=== PATIENT | male | born 1935 | race Caucasian/White ===

== ENCOUNTER 2019-05-31 08:01 | Emergency (ER) | payer SELFPAY ==
[~2019-05-31] VITALS: Ht 167.6 cm; Wt 69.9 kg
--- NOTE | 2019-05-31 08:17 | NUR ---
SEEN AND EXAMINED BY DR. SERNA.
[2019-05-31] MEDS ORDERED: IPRATROPIUM NEB FS 0.5 MG/2.5 ML AMPUL.NEB NEB ONE (08:30)
[2019-05-31] MEDS ORDERED: IV NS 0.9% 500 ML BAG IV ONE (08:30)
[2019-05-31] MEDS ORDERED: ALBUTEROL FS 2.5 MG/3 ML VIAL.NEB NEB ONE (08:30)
--- NOTE | 2019-05-31 08:30 | NUR ---
IV LINE ESTABLISHED, BLOOD DRAWNED AND SENT TO LAB.
[2019-05-31 08:40] LABS: BASOPHILS % (AUTO) 0.8 % (0.0-2.0); EOSINOPHILS % (AUTO) 2.1 % (0.0-6.0); HEMATOCRIT 38 % (39-51); HEMOGLOBIN 12.8 g/dL (13.5-17.5); LYMPHOCYTES # (AUTO) 0.7 /CMM (0.8-4.8); LYMPHOCYTES % (AUTO) 13.1 % (20.0-44.0); MEAN CORPUSCULAR HGB CONC 34 g/dl (31.0-36.0); MEAN CORPUSCULAR VOLUME 95 fL (80-96); MONOCYTES # (AUTO) 0.3 /CMM (0.1-1.30); MONOCYTES % (AUTO) 5.1 % (2.0-12.0); NEUTROPHILS # (AUTO) 4.1 /CMM (1.8-8.9); NEUTROPHILS % (AUTO) 78.9 % (43.0-81.0); PLATELET COUNT (AUTO) 246 /CMM (150-450); WHITE BLOOD COUNT (AUTO) 5.2 K/uL (4.3-11.0)
--- NOTE | 2019-05-31 08:40 | NUR ---
RT AT BEDSIDE FOR BREATHING TREATMENT.
[2019-05-31] MEDS ORDERED: IPRATROPIUM NEB FS 0.5 MG/2.5 ML AMPUL.NEB ONE (08:41)
[2019-05-31] MEDS ORDERED: ALBUTEROL FS 2.5 MG/3 ML VIAL.NEB ONE (08:41)
[2019-05-31 08:48] LABS: CALCIUM, SERUM 8.2 mg/dL (8.5-10.1); CARBON DIOXIDE 24 mmol/L (21-32); CHLORIDE 106 mmol/L (98-107); CREATININE 0.8 mg/dL (0.6-1.3); GLUCOSE 137 mg/dL (74-106); POTASSIUM 3.6 mmol/L (3.5-5.1); SODIUM SERUM 140 mmol/L (136-145); UREA NITROGEN, BLOOD 11 mg/dL (7-18)
--- NOTE | 2019-05-31 09:05 | NUR ---
MACHINE APPLICATOR CEMENTER AT BEDSIDE FOR XRAY.
[2019-05-31 10:00] VITALS: BP 114/62
--- NOTE | 2019-05-31 10:18 | NUR ---
IV removed. Catheter intact and site benign. Pressure and 4x4 applied to site. No bleeding noted.Patient discharged to home in stable condition. Written and verbal after care instructions given. Patient verbalizes understanding of instruction.
== END 2019-05-31 10:19 | disposition home or self-care (01) ==
LOC: ER 08:02
DX: J06.9 Acute upper respiratory infection, unspecified (principal); K21.9 Gastro-esophageal reflux disease without esophagitis; Z98.890 Other specified postprocedural states
CPT/HCPCS: 36415; 71045; 80048; 84145; 84484; 85025; 87040 ×2; 93005; 94640; 99284; J7040

== ENCOUNTER 2019-06-01 07:04 | Emergency (ER) | payer MEDICARE, OTHER ==
[~2019-06-01] VITALS: Ht 167.6 cm; Wt 69.9 kg
[2019-06-01 07:08] VITALS: BP 141/67
--- NOTE | 2019-06-01 07:10 | NUR ---
PT BIBRA 39 C/O CHOKING ON FOOD, PT STATES, "FEELS LIKE SOMETHING IS STILL IN THROAT." PT AXO2. RESPIRATIONS EVEN AND UNLABORED. PT PUT ON THE COUNTY AGENT AND PULSE OX. PENDING EVAL FROM NADIR BLAIR.
--- NOTE | 2019-06-01 07:22 | NUR ---
REPORT GIVEN TO CARA SANDERS FOR GENESIS.
[2019-06-01 07:38] LABS: BASOPHILS % (AUTO) 0.1 % (0.0-2.0); EOSINOPHILS % (AUTO) 2.8 % (0.0-6.0); HEMATOCRIT 39 % (39-51); HEMOGLOBIN 13.1 g/dL (13.5-17.5); LYMPHOCYTES # (AUTO) 0.8 /CMM (0.8-4.8); LYMPHOCYTES % (AUTO) 14.6 % (20.0-44.0); MEAN CORPUSCULAR HGB CONC 34 g/dl (31.0-36.0); MEAN CORPUSCULAR VOLUME 95 fL (80-96); MONOCYTES # (AUTO) 0.4 /CMM (0.1-1.30); MONOCYTES % (AUTO) 6.7 % (2.0-12.0); NEUTROPHILS % (AUTO) 75.8 % (43.0-81.0); PLATELET COUNT (AUTO) 250 /CMM (150-450); RED BLOOD CELL COUNT(AUTO) 4.11 MIL/uL (4.5-6.0); WHITE BLOOD COUNT (AUTO) 5.2 K/uL (4.3-11.0)
--- NOTE | 2019-06-01 07:42 | NUR ---
ASSUMED CARE PATIENT AWAKE ALERT NON DISTRESS TRAIN SYSTEM OPERATOR @ BEDSIDE FOR LAB DRAWN PATIENT RESTING COMFORTABLE CONTINUE TO MONITOR
[2019-06-01 07:58] LABS: CALCIUM, SERUM 8.6 mg/dL (8.5-10.1); CARBON DIOXIDE 25 mmol/L (21-32); CHLORIDE 107 mmol/L (98-107); CREATININE 0.7 mg/dL (0.6-1.3); GLUCOSE 98 mg/dL (74-106); POTASSIUM 3.7 mmol/L (3.5-5.1); SODIUM SERUM 141 mmol/L (136-145); UREA NITROGEN, BLOOD 12 mg/dL (7-18)
--- NOTE | 2019-06-01 08:19 | NUR ---
PATIENT AWAKE ALERT NOTED ABLE TO AMBULATED TO AND BATHROOM NON DIFFICULTIES ,URINE OBTAINEDAND SEND TO LAB ,MD @ BEDSIDE
--- NOTE | 2019-06-01 08:47 | NUR ---
PATIENT AWARE AWAITING FOR URINE TEST
[2019-06-01 08:49] LABS: APPEARANCE,URINE Clear (CLEAR); BILIRUBIN,URINE Negative (NEGATIVE); BLOOD, URINE Negative Ery/uL (NEGATIVE); COLOR,URINE Yellow (YELLOW); KETONES,URINE 15 (NEGATIVE); LEUKOCYTE ESTERASE ,URINE Negative (NEGATIVE); NITRITE, URINE Negative (NEGATIVE); PROTEIN,URINE Negative (NEGATIVE); UGLUCOSE Negative (NEGATIVE)
--- NOTE | 2019-06-01 09:09 | NUR ---
PATIENT AWAKE ALERT AMBULATORY DC HOME INSTRUCTION GIVEN ,PATIENT STATED WHERE HE LIVE AND STAY AND HE AGRESS TO FOLLOW UP PMD IN 1 DAY .CALL HOUSE SUP FOR SANTIAGO May
--- NOTE | 2019-06-01 09:58 | NUR ---
SPOKE TO HER DAUGTHER REGARDING TEST RESULT UNABLE TO PICK HER UP ,WILL PROVIDE SANTIAGO May
--- NOTE | 2019-06-01 10:07 | NUR ---
PATIENT AWAKE ALERT ABLE TO VERIFY HOME ADDRESS ,[place] [address] ,CALLED I ,PATIENT APPRECIATED
== END 2019-06-01 10:06 | disposition home or self-care (01) ==
LOC: ER 07:05
DX: R53.81 Other malaise (principal); F45.8 Other somatoform disorders; J45.909 Unspecified asthma, uncomplicated; K21.9 Gastro-esophageal reflux disease without esophagitis; Z98.890 Other specified postprocedural states
CPT/HCPCS: 36415; 80048-TC; 81000-TC; 84484-TC; 85025-TC

== ENCOUNTER 2019-06-26 17:47 | Emergency (ER) | payer OTHER ==
[~2019-06-26] VITALS: Ht 167.6 cm; Wt 70.3 kg
[2019-06-26 17:54] VITALS: BP 135/68
[2019-06-26] MEDS ORDERED: ALBUTEROL FS 2.5 MG/3 ML VIAL.NEB CONTNEB ONE (18:30)
[2019-06-26] MEDS ORDERED: diphenhydrAMINE HCL 50 MG CAPSULE PO ONE (18:30)
[2019-06-26] MEDS ORDERED: ALBUTEROL FS 2.5 MG/3 ML VIAL.NEB ONE (18:54)
[2019-06-26] MEDS ORDERED: diphenhydrAMINE HCL 25 MG CAPSULE ONE (18:55)
--- NOTE | 2019-06-26 19:19 | NUR ---
PER MD, CANCEL EKG
== END 2019-06-26 20:02 | disposition home or self-care (01) ==
LOC: ER 17:56
DX: J30.9 Allergic rhinitis, unspecified (principal); J06.9 Acute upper respiratory infection, unspecified; J44.9 Chronic obstructive pulmonary disease, unspecified; K21.9 Gastro-esophageal reflux disease without esophagitis; Z98.890 Other specified postprocedural states
CPT/HCPCS: 93005; 94640 ×2; 99284; Q0163

== ENCOUNTER 2019-07-01 17:07 | Emergency (ER) | payer OTHER ==
[~2019-07-01] VITALS: Ht 172.7 cm; Wt 66.7 kg
--- NOTE | 2019-07-01 17:15 | NUR ---
DARLINE, FROM [facility], PT STATES "I FELL LIKE SOMETHING STUCKED IN MY THROAT", NO SOB. PATIENT A/OX2-3, BREATHING EVEN AND UNLABORED, NO SOB NOTED, NEEDS ATTENDED.
[2019-07-01] MEDS ORDERED: ALBUTEROL FS 2.5 MG/3 ML VIAL.NEB CONTNEB ONE (17:30)
[2019-07-01] MEDS ORDERED: IPRATROPIUM NEB FS 0.5 MG/2.5 ML AMPUL.NEB NEB ONE (17:30)
--- NOTE | 2019-07-01 17:42 | NUR ---
LENIN DAUGHTER CONTACT # [phone]
[2019-07-01 18:05] LABS: BASOPHILS % (AUTO) 0.3 % (0.0-2.0); EOSINOPHILS % (AUTO) 0.7 % (0.0-6.0); HEMATOCRIT 40 % (39-51); HEMOGLOBIN 13.2 g/dL (13.5-17.5); LYMPHOCYTES # (AUTO) 0.6 /CMM (0.8-4.8); LYMPHOCYTES % (AUTO) 7.3 % (20.0-44.0); MEAN CORPUSCULAR HGB CONC 33 g/dl (31.0-36.0); MEAN CORPUSCULAR VOLUME 97 fL (80-96); MONOCYTES # (AUTO) 0.5 /CMM (0.1-1.30); NEUTROPHILS # (AUTO) 6.6 /CMM (1.8-8.9); NEUTROPHILS % (AUTO) 84.7 % (43.0-81.0); PLATELET COUNT (AUTO) 261 /CMM (150-450); WHITE BLOOD COUNT (AUTO) 7.8 K/uL (4.3-11.0)
[2019-07-01] MEDS ORDERED: ALBUTEROL FS 2.5 MG/3 ML VIAL.NEB ONE (18:17)
[2019-07-01] MEDS ORDERED: IPRATROPIUM NEB FS 0.5 MG/2.5 ML AMPUL.NEB ONE (18:17)
[2019-07-01 18:25] LABS: CALCIUM, SERUM 8.5 mg/dL (8.5-10.1); CREATININE 0.7 mg/dL (0.6-1.3); POTASSIUM 3.9 mmol/L (3.5-5.1)
--- NOTE | 2019-07-01 18:54 | NUR ---
SPOKE WITH LENIN DAUGHTER AND EXPLAINED DISCHARGE INSTRUCTIONS.
[2019-07-01] MEDS ORDERED: ACETAMINOPHEN ES 500 MG TABLET PO ONE (19:00)
[2019-07-01] MEDS ORDERED: PROPOFOL 200 MG/20 ML VIAL IV ONE (19:00)
[2019-07-01] MEDS ORDERED: ACETAMINOPHEN ES 500 MG TABLET ONE (19:02)
--- NOTE | 2019-07-01 19:27 | NUR ---
ELSA DIAMOND [id number] TRIP #[id number]
--- NOTE | 2019-07-01 19:27 | NUR ---
PATIENT ENDORSED TO GABRIELA SANDERS FOR GENESIS. PATIENT REFUSED EKG, OFFERED MULTIPLE TIMES, EXPLAINED RISKS AND BENEFITS, STILL REFUSED.
--- NOTE | 2019-07-01 19:50 | NUR ---
pt refused ECG. risk vs benefits has been explained to the pt
--- NOTE | 2019-07-01 21:16 | NUR ---
report given to packaging manager from [facility]
--- NOTE | 2019-07-01 21:29 | NUR ---
Patient discharged to home in stable condition. Written and verbal after care instructions given. Patient verbalizes understanding of instruction. pt was picked up by [facility] via gurney in stable condition. all belongings picked up by the pt.
[2019-07-01 21:30] VITALS: BP 124/62
== END 2019-07-01 21:30 | disposition home or self-care (01) ==
LOC: ER 17:14
DX: J04.0 Acute laryngitis (principal); J45.909 Unspecified asthma, uncomplicated; K21.9 Gastro-esophageal reflux disease without esophagitis; Z98.890 Other specified postprocedural states
CPT/HCPCS: 36415; 71045-TC; 80048-TC; 85025-TC

== ENCOUNTER 2019-07-20 00:31 | Inpatient (IN) | payer OTHER ==
[~2019-07-20] VITALS: Ht 175.3 cm; Wt 62.6 kg
[2019-07-20 01:17] LABS: BASOPHILS # (AUTO) 0.1 /CMM (0.0-0.2); BASOPHILS % (AUTO) 1.3 % (0.0-2.0); EOSINOPHILS % (AUTO) 1.6 % (0.0-6.0); HEMATOCRIT 37 % (39-51); HEMOGLOBIN 12.3 g/dL (13.5-17.5); LYMPHOCYTES # (AUTO) 0.9 /CMM (0.8-4.8); MEAN CORPUSCULAR HGB CONC 33 g/dl (31.0-36.0); MEAN CORPUSCULAR VOLUME 95 fL (80-96); MONOCYTES # (AUTO) 0.5 /CMM (0.1-1.30); MONOCYTES % (AUTO) 7.5 % (2.0-12.0); NEUTROPHILS # (AUTO) 4.9 /CMM (1.8-8.9); NEUTROPHILS % (AUTO) 75.6 % (43.0-81.0); PLATELET COUNT (AUTO) 526 /CMM (150-450); RED BLOOD CELL COUNT(AUTO) 3.88 MIL/uL (4.5-6.0); WHITE BLOOD COUNT (AUTO) 6.5 K/uL (4.3-11.0)
[2019-07-20 01:41] LABS: CALCIUM, SERUM 9.7 mg/dL (8.5-10.1); CARBON DIOXIDE 31 mmol/L (21-32); CHLORIDE 103 mmol/L (98-107); CREATININE 0.9 mg/dL (0.6-1.3); GLUCOSE 102 mg/dL (74-106); POTASSIUM 4.6 mmol/L (3.5-5.1); SODIUM SERUM 137 mmol/L (136-145); UREA NITROGEN, BLOOD 15 mg/dL (7-18)
[2019-07-20 01:46] LABS: ALANINE AMINOTRANSFERASE 27 U/L (12-78); ALBUMIN 2.9 g/dL (3.4-5.0); ALKALINE PHOSPHATASE 102 U/L (46-116); ASPARTATE AMINOTRANSFERASE 14 U/L (15-37); BILIRUBIN,DIRECT 0.2 mg/dL (0.0-0.2); BILIRUBIN,TOTAL 0.6 mg/dL (0.2-1.0); LIPASE 160 U/L (73-393)
--- NOTE | 2019-07-20 01:47 | NUR ---
BIBRA. TO ER BED 9. AAOX3. NO RESP DISTRESS NOTED, BREATHING EVEN AND UNLABORED. C/O DIZZINESS X 1 MONTH, ABDOMINAL AND BACK PAIN X 1 WEEK. PT RATES BACK PAIN 8/10, ABD PAIN 6/10. DENIES NAUSEA. DENIES CP. PT REPORTS NON PRODUCTIVE COUGH WELL. MD AT BEDSIDE FOR EVAL. ORDERS RECEIVED NOTED.
[2019-07-20] MEDS ORDERED: IOHEXOL-300 100 ML VIAL IV ONE (01:59)
[2019-07-20] MEDS ORDERED: CT SWABBABLE VALVE TRANS SET 1 EA INFUS.SET MC ONE (02:00)
[2019-07-20] MEDS ORDERED: IV NS 0.9% 250 ML IV ONE (02:00)
--- NOTE | 2019-07-20 02:00 | NUR ---
PT TO RADIOLOGY
[2019-07-20] MEDS ORDERED: ONDANSETRON HCL/PF 4 MG/2 ML VIAL IVP PRN (04:30)
[2019-07-20] MEDS ORDERED: MAG HYDROX/AL HYDROX/SIMETH 30 ML UDC PO PRN (04:30)
[2019-07-20] MEDS ORDERED: HYDROCODONE/APAP 5/325MG 1 EACH TABLET PO PRN (04:30)
[2019-07-20] MEDS ORDERED: ACETAMINOPHEN 325 MG TABLET PO PRN (04:30)
[2019-07-20] MEDS ORDERED: MAGNESIUM HYDROXIDE 30 ML UDC PO PRN (04:30)
[2019-07-20] MEDS ORDERED: ZOLPIDEM TARTRATE 5 MG TABLET PO PRN (04:30)
[2019-07-20] MEDS ORDERED: MORPHINE SULFATE INJ 2 MG/ML DISP.SYRIN IV PRN (04:30)
[2019-07-20] MEDS ORDERED: Z GUARD REMEDY 2 OZ OINT TP PRN (04:30)
--- NOTE | 2019-07-20 04:55 | NUR ---
REPORT GIVEN TO MARILYN MARTEL FOR GENESIS
[2019-07-20 05:00] VITALS: BP 106/87
--- NOTE | 2019-07-20 05:20 | NUR ---
HORSE RACETRACK MANAGER ADMITTING NOTES RECEIVED PT FROM ER VIA BRITNEY. PT A/O X2-3 WITH PERIODS OF CONFUSION. PT ABLE TO MAKE NEEDS KNOWN. RESPIRATIONS EVEN AND UNLABORED WITH NO S/S OF ACUTE DISTRESS OR SOB NOTED. NO COMPLAINTS OF PAIN AT THIS TIME. PT WITH LAC #18G PATENT AND INTACT AND SL. SAFETY MEASURES IN PLACE WITH BED IN LOWEST LOCKED POSITION WITH SIDE RAILS UP X2. ORIENTED PT TO UNIT AND STAFF. CALL LIGHT WITHIN REACH. WILL CONTINUE TO MONITOR.
--- NOTE | 2019-07-20 05:21 | NUR ---
PT TRANSPORTED TO UNIT ON GURNEY WITH EMT AND RN AT BEDSIDEW/ ACLS PROTOCOL. NOAD NOTED DURING TRANSPORT.
--- NOTE | 2019-07-20 07:28 | NUR ---
GLAZIER SUPERVISOR NOTES PT IN BED AWAKE AND ABLE TO MAKE NEEDS KNOWN. PT A/O X2-3 WITH PERIODS OF CONFUSION. RESPIRATIONS EVEN AND UNLABORED WITH NO S/S OF ACUTE DISTRESS OR SOB NOTED THROUGHOUT SHIFT. PT KEPT CLEAN, DRY, AND COMFORTABLE. PT WITH TELE MONITOR SR WITH 1ST DEGREE AV BLOCK @80S. NO COMPLAINTS OF PAIN THROUGHOUT SHIFT. PT WITH LAC #18G PATENT AND INTACT AND SL. SAFETY MEASURES IN PLACE WITH BED IN LOWEST LOCKED POSITION WITH SIDE RAILS UP X2. CALL LIGHT WITHIN REACH. WILL ENDORSE TO ONCOMING NURSE FOR GENESIS.
[2019-07-20] MEDS ORDERED: PANTOPRAZOLE 40 MG TABLET.DR PO SCH (07:30)
--- NOTE | 2019-07-20 07:32 | NUR ---
RN OPENING NOTES RECEIVED PATIENT IN BED RESTING. A/OX2, PERIODS OF CONFUSION AND FORGETFULNESS. NOT IN ANY FORM OF DISTRESS, NO SOB. DENIES PAIN OR DISCOMFORT AT THIS TIME. IV ACCESS INTACT AND PATENT. ON TELEMONITOR SR 80 WITH [address] AV BLOCK. SAFETY MEASURES IN PLACE. NEEDS ATTENDED AND PROVIDED. BED IN LOW/LOCKED POSITION, SIDERAILS UPX2, CALL LIGHT IN REACH. BED ALARM ON. WILL CONTINUE TO MONIOTR ACCORDINGLY
[2019-07-20 08:00] VITALS: BP 117/65
[2019-07-20] MEDS ORDERED: ASPIRIN 81 MG TAB.CHEW PO SCH (09:00)
[2019-07-20] MEDS ORDERED: ASPI-1152 PO (14:00)
[2019-07-20] MEDS ORDERED: MULT-447 PO (14:00)
[2019-07-20] MEDS ORDERED: PANT40TA2 PO (14:00)
[2019-07-20] MEDS ORDERED: AMLO10TA4 PO (14:00)
[2019-07-20 16:00] VITALS: BP 136/73
[2019-07-20] MEDS ORDERED: AMOX-430 PO (16:20)
--- NOTE | 2019-07-20 17:00 | NUR ---
DISCHARGED PATIENT IN STABLE CONDITION, PICKED UP BY [facility] VIA WHEELCHAIR, ACCOMPANIED BY PRIMARY NURSE. DISCHARGE INSTRUCTIONS AND EDUCATIONAL RESOURCES PROVIDED. DC PAPERWORK HANDED TO PATIENT. ALL BELONGINGS RETURNED, PATIENT DOESNT HAVE PANTS ON ADMISSION, PANTS PROVIDED. IV ACCESS REMOVED, TIP INTACT. REMOVED NAMEBAND. REFUSED SKIN PHOTO.
== END 2019-07-20 17:10 | disposition home or self-care (01) | DRG 74 ==
LOC: ER 00:33 → TELE 03:58 → MED 11:50
PROVIDERS: ADMIT Internal Medicine; ATTEND Internal Medicine
DX: G90.8 Other disorders of autonomic nervous system (principal); J32.0 Chronic maxillary sinusitis; D63.8 Anemia in other chronic diseases classified elsewhere; M54.5 Low back pain
CPT/HCPCS: 36415; 70450-TC; 71045-TC; 80048-TC; 80076-TC; 83690-TC; 84484-TC; 85025-TC; 87081-TC; 97116-TC; 97530-TC; G0378; J7050; Q9967

== ENCOUNTER 2019-07-23 03:28 | Inpatient (IN) | payer OTHER ==
[~2019-07-23] VITALS: Ht 170.2 cm; Wt 63.5 kg
[~2019-07-23 03:28] MED LIST: AMLO10TA4 PO; AMOX-430 PO; ASPI-1152 PO; MULT-447 PO; PANT40TA2 PO
--- NOTE | 2019-07-23 03:44 | NUR ---
[id number] FROM HOME. C/O BACK PAIN 04/12 S/P GLF. +HEAD TRAUMA, -LOC
[2019-07-23] MEDS ORDERED: IBUPROFEN 600 MG TABLET PO ONE ×2 (03:48→04:00)
--- NOTE | 2019-07-23 03:55 | NUR ---
left for ct
[2019-07-23] MEDS ORDERED: IV NS 0.9% 500 ML BAG IV ONE (05:30)
[2019-07-23] MEDS ORDERED: MORPHINE SULFATE INJ 2 MG/ML DISP.SYRIN IV ONE (05:30)
[2019-07-23] MEDS ORDERED: ONDANSETRON HCL/PF 4 MG/2 ML VIAL IVP ONE (05:30)
[2019-07-23] MEDS ORDERED: ONDANSETRON HCL/PF 4 MG/2 ML VIAL ONE (05:35)
[2019-07-23] MEDS ORDERED: MORPHINE SULFATE INJ 4 MG/ML DISP.SYRIN ONE (05:36)
[2019-07-23 05:42] LABS: BASOPHILS # (AUTO) 0.1 /CMM (0.0-0.2); BASOPHILS % (AUTO) 0.6 % (0.0-2.0); EOSINOPHILS % (AUTO) 1.6 % (0.0-6.0); HEMATOCRIT 35 % (39-51); HEMOGLOBIN 11.9 g/dL (13.5-17.5); LYMPHOCYTES # (AUTO) 0.7 /CMM (0.8-4.8); LYMPHOCYTES % (AUTO) 7.8 % (20.0-44.0); MEAN CORPUSCULAR HGB CONC 34 g/dl (31.0-36.0); MEAN CORPUSCULAR VOLUME 95 fL (80-96); MONOCYTES # (AUTO) 0.5 /CMM (0.1-1.30); MONOCYTES % (AUTO) 5.5 % (2.0-12.0); NEUTROPHILS # (AUTO) 7.6 /CMM (1.8-8.9); NEUTROPHILS % (AUTO) 84.5 % (43.0-81.0); PLATELET COUNT (AUTO) 400 /CMM (150-450); RED BLOOD CELL COUNT(AUTO) 3.74 MIL/uL (4.5-6.0)
[2019-07-23 05:53] LABS: CALCIUM, SERUM 8.7 mg/dL (8.5-10.1); CREATININE 0.8 mg/dL (0.6-1.3); POTASSIUM 3.8 mmol/L (3.5-5.1)
--- NOTE | 2019-07-23 07:02 | NUR ---
report given to Lachelle on third floor
[2019-07-23 07:30] VITALS: BP 131/74
[2019-07-23] MEDS ORDERED: MORPHINE SULFATE INJ 2 MG/ML DISP.SYRIN IV PRN (07:30)
[2019-07-23] MEDS ORDERED: Z GUARD REMEDY 2 OZ OINT TP PRN (07:30)
[2019-07-23] MEDS ORDERED: MAG HYDROX/AL HYDROX/SIMETH 30 ML UDC PO PRN (07:30)
[2019-07-23] MEDS ORDERED: MAGNESIUM HYDROXIDE 30 ML UDC PO PRN (07:30)
[2019-07-23] MEDS ORDERED: ZOLPIDEM TARTRATE 5 MG TABLET PO PRN (07:30)
[2019-07-23] MEDS ORDERED: ACETAMINOPHEN 325 MG TABLET PO PRN (07:30)
[2019-07-23] MEDS ORDERED: HYDROCODONE/APAP 5/325MG 1 EACH TABLET PO PRN (07:30)
[2019-07-23] MEDS ORDERED: ONDANSETRON HCL/PF 4 MG/2 ML VIAL IVP PRN (07:30)
--- NOTE | 2019-07-23 07:40 | NUR ---
PT WAS TRANSFERRED TO [facility] UNDER ACLS
--- NOTE | 2019-07-23 08:00 | NUR ---
MS/RN Admitting notes Patient received from ER nurse at 0800 by sebastian, all belongings with patient, belongings list checked. A/O x1-2, confused at times, oriented to reality. Vital signs WNL, patient on fall precautions, patient instructed to stay in bed due to recent fall at home. RAC S/L is clean and patent. Skin assessed, pictures taken and placed in chart. Bed is in lowest position, side rails x3 in upright position, safety and aspiration precautions initiated. Will notify MD and continue will current plan of care.
[2019-07-23] MEDS: ASPIRIN EC 81 MG TABLET.DR PO SCH (08:33)
[2019-07-23] MEDS: MULTIVIT W/MINERALS 1 TAB TABLET PO SCH (08:33)
[2019-07-23] MEDS: PANTOPRAZOLE 40 MG TABLET.DR PO SCH (08:33)
[2019-07-23] MEDS: AMLODIPINE BESYLATE 10 MG TABLET PO SCH (08:33)
[2019-07-23 09:00] VITALS: BP 131/74
[2019-07-23 10:00] VITALS: BP 131/74
[2019-07-23 16:00] VITALS: BP 121/70
--- NOTE | 2019-07-23 17:42 | NUR ---
MS/RN Closing notes Patient resting in bed, A/O x2, confused at times, re-oriented to reality. Patient on bed rest as per MD orders. IV on RAC 18g s/l is clean and intact. All patient needs met, all due meds given. Fall, safety and aspiration precautions enforced. Call light is within reach and patient is aware of how to call for assistance when needed. Will endorse to cage shift manager.
--- NOTE | 2019-07-23 19:10 | NUR ---
MS/RN Urine Patient c/o pain during urination, notified MD. MD ordered for UA and C&S. Obtained urine sample, notified lab that its ready for pickle pumper.
--- NOTE | 2019-07-23 19:33 | NUR ---
RECEIVED PATIENT IN THE BED ALERT AND ORIENTATED. SPEECH CLEAR DENIES PAIN MOVES ABOUT IN THE BED INDEPENDENTLY. VOIDED IN THE URINAL CLEAR YELLOW IN COLOR. REMINDED HIM TO CALL ME IF NEED TO GET OOB BEDALARM ON.
[2019-07-23 20:00] VITALS: BP 124/69
[2019-07-23 20:15] VITALS: BP 124/69
[2019-07-23 20:46] LABS: APPEARANCE,URINE CLEAR (CLEAR); BILIRUBIN,URINE NEGATIVE (NEGATIVE); BLOOD, URINE NEGATIVE Ery/uL (NEGATIVE); COLOR,URINE YELLOW (YELLOW); KETONES,URINE NEGATIVE (NEGATIVE); LEUKOCYTE ESTERASE ,URINE NEGATIVE (NEGATIVE); NITRITE, URINE NEGATIVE (NEGATIVE); PROTEIN,URINE NEGATIVE (NEGATIVE); UGLUCOSE NEGATIVE (NEGATIVE); UROBILINOGEN,URINE 0.2 EU/dL (0.2)
--- NOTE | 2019-07-24 04:38 | NUR ---
MS/RN CLOSING NOTES: SLEPT THRU THE NIGHT ONLY TO AWAKE TO USE THE URINAL/ VOIDS FREQ THRU THE NIGHT 200ML AT A TIME x6. URINE CLEAR YELLOW. MEDICATED WITH NORCO TABLET 1 FOR BACK PAIN AND EFFECTIVE. I OFFERED NORCO X3 BEFORE HE WOULD EXCEPT TO TAKE IT . HE KEPT TELLING ME WHEN I ASKED THAT HE WAS NOT IN PAIN. I COULD SEE HE WAS IN HIS FACIAL EXPRESSIONS, SPOKE TO HIM ABOUT HEALING AND COMFORT AND A GOOD NIGHT SLEEP. THIS IS WHEN HE TOOK THE ANALGESIC WHICJ WAS EFFECTIVE ,
--- NOTE | 2019-07-24 07:25 | NUR ---
MS RN OPENING NOTES RECEIVED PATIENT IN BED ALERT AND AWAKE ORIENTED X2. NO SOB. DENIES ANY C/O PAIN NOR DISCOMFORT AT THIS TIME. RT AC # 20 INTACT AND PATENT SL WITHOUT S/S OF COMPLICATIONS. BED IN LOWEST POSITION, LOCKED. BED ALARM ON. CALL LIGHT WITHIN REACH.
[2019-07-24] MEDS: PANTOPRAZOLE 40 MG TABLET.DR PO SCH (07:30)
[2019-07-24 07:44] LABS: BASOPHILS % (AUTO) 0.7 % (0.0-2.0); EOSINOPHILS % (AUTO) 2.3 % (0.0-6.0); HEMATOCRIT 36 % (39-51); LYMPHOCYTES # (AUTO) 0.8 /CMM (0.8-4.8); LYMPHOCYTES % (AUTO) 13.5 % (20.0-44.0); MEAN CORPUSCULAR HGB CONC 33 g/dl (31.0-36.0); MEAN CORPUSCULAR VOLUME 94 fL (80-96); MONOCYTES # (AUTO) 0.4 /CMM (0.1-1.30); NEUTROPHILS # (AUTO) 4.5 /CMM (1.8-8.9); NEUTROPHILS % (AUTO) 77.5 % (43.0-81.0); PLATELET COUNT (AUTO) 376 /CMM (150-450); RED BLOOD CELL COUNT(AUTO) 3.84 MIL/uL (4.5-6.0); WHITE BLOOD COUNT (AUTO) 5.8 K/uL (4.3-11.0)
[2019-07-24 07:55] LABS: CALCIUM, SERUM 8.4 mg/dL (8.5-10.1); CREATININE 0.8 mg/dL (0.6-1.3); MAGNESIUM 2.1 mg/dL (1.8-2.4); PHOSPHORUS 2.9 mg/dL (2.5-4.9); POTASSIUM 4.3 mmol/L (3.5-5.1)
[2019-07-24 08:00] VITALS: BP 110/63
[2019-07-24] MEDS: ASPIRIN EC 81 MG TABLET.DR PO SCH (10:15)
[2019-07-24] MEDS: AMLODIPINE BESYLATE 10 MG TABLET PO SCH (10:15)
[2019-07-24] MEDS: MULTIVIT W/MINERALS 1 TAB TABLET PO SCH (10:15)
[2019-07-24 16:00] VITALS: BP 128/64
--- NOTE | 2019-07-24 18:00 | NUR ---
MS COLD FOOD PACKER/CLOSING NOTES PATIENT ALERT AND ORIENTED X2 WITH EPISODES OF FORGETFULNESS AND CONFUSION. AMBULATORY WITH THE USE OF WALKER. DISCHARGE PACKET AND DISCHARGE INSTRUCTIONS GIVEN TO PATIENT. IV ACCESS REMOVED WITH CATHETER TIP INTACT WITH GAUZE DRESSING APPLIED. PATIENT PICKED UP BY [facility] ACCOMPANIED BY 2 EMT PERSONNEL. ALL BELONGINGS ACCOUNTED FOR. CM SPOKE TO [place] AT [facility] BO[facility] AND CARE REGARDING PATIENT'S DISCHARGE. PATIENT LEFT IN STABLE CONDITION VIA WHEEL CHAIR VIA [facility].
== END 2019-07-24 18:00 | disposition home or self-care (01) | DRG 544 ==
LOC: ER 03:29 → MED 06:45
PROVIDERS: ADMIT Nurse Practitioner Acute Care; ATTEND Nurse Practitioner Acute Care
DX: M48.56XA Collapsed vertebra, not elsewhere classified, lumbar region, initial encounter for fracture (principal); M48.061 Spinal stenosis, lumbar region without neurogenic claudication; W18.30XA Fall on same level, unspecified, initial encounter; Y92.009 Unspecified place in unspecified non-institutional (private) residence as the place of occurrence of the external cause; K21.9 Gastro-esophageal reflux disease without esophagitis; J44.9 Chronic obstructive pulmonary disease, unspecified; I25.10 Atherosclerotic heart disease of native coronary artery without angina pectoris; I10 Essential (primary) hypertension; F03.90 Unspecified dementia, unspecified severity, without behavioral disturbance, psychotic disturbance, mood disturbance, and anxiety; D64.9 Anemia, unspecified; Z79.82 Long term (current) use of aspirin; Z79.899 Other long term (current) drug therapy; Z85.47 Personal history of malignant neoplasm of testis; Z98.890 Other specified postprocedural states; I70.0 Atherosclerosis of aorta; M25.78 Osteophyte, vertebrae; K80.20 Calculus of gallbladder without cholecystitis without obstruction; K44.9 Diaphragmatic hernia without obstruction or gangrene
CPT/HCPCS: 36415; 70450-TC; 72131-TC; 80048-TC; 80061-TC; 81000-TC; 83735-TC; 84100-TC; 85025-TC; 85730-TC; 87081-TC; 87086-TC; 97116-TC; 97530-TC; G0378; J2270; J2405; J7040